=== PATIENT | female | born 1985 | race African-American/Black ===

== ENCOUNTER → 2024-02-15 | Outpatient (CLI) | payer OTHER | LOC: M WHC 13:12 | PROVIDERS: ATTEND General Practice | DX: Z12.31 Encounter for screening mammogram for malignant neoplasm of breast (principal); R92.333 Mammographic heterogeneous density, bilateral breasts; N63.11 Unspecified lump in the right breast, upper outer quadrant ==

== ENCOUNTER → 2024-03-14 | Outpatient (CLI) | payer OTHER | LOC: M WHC 11:31 | PROVIDERS: ATTEND General Practice | DX: R92.8 Other abnormal and inconclusive findings on diagnostic imaging of breast (principal); R92.331 Mammographic heterogeneous density, right breast | CPT/HCPCS: 77065; G0279 ==